=== PATIENT | female | born 1995 | race African-American/Black ===

== ENCOUNTER 2020-06-25 11:37 | Emergency (ER) | payer MEDICAID ==
[~2020-06-25] VITALS: Ht 165.1 cm; Wt 68.0 kg
[2020-06-25 11:41] VITALS: BP 126/59; Ht 165.1 cm; Wt 68.0 kg
[2020-06-25 12:22] LABS: BASOPHIL % 0.5 % (0.2-1.3); PLATELET COUNT 309 x10^3mcL (179-408)
[2020-06-25 14:59] LABS: rbc morphology (normal/abnorm) NORMAL (NORMAL)
== END 2020-06-25 14:32 | disposition home or self-care (01) ==
LOC: ED 11:37
PROVIDERS: Emergency Medicine
DX: O03.9 Complete or unspecified spontaneous abortion without complication (principal); Z3A.09 9 weeks gestation of pregnancy